=== PATIENT | male | born 1970 | race African-American/Black ===

== ENCOUNTER 2018-02-03 15:35 | Emergency (ER) | payer OTHER ==
[~2018-02-03] VITALS: Ht 170.2 cm; Wt 85.9 kg
[~2018-02-03 15:35] MED LIST: CIPRO500 MG PO; FLEXERIL10 MG PO; KEFLEX500 MG PO; MOBIC7.5 MG PO; NAPROSYN500 MG PO; NORCO 5/3251 TABLET PO; PERCOCET 5/31 TABLET PO; PYRIDIUM200 MG PO; ULTRAM50 MG PO; VALIUM5 MG PO; ZOFRAN ODT4 MG PO
[2018-02-03] MEDS ORDERED: VALIUM5 MG PO (16:52)
[2018-02-03] MEDS ORDERED: TORADOL10 MG PO (16:52)
[2018-02-03] MEDS ORDERED: LIDODERM 5% P1 PATCH TD (16:52)
[2018-02-03 18:00] VITALS: BP 134/87
== END 2018-02-03 18:00 | disposition home or self-care (01) ==
LOC: EME 15:35
DX: M54.31 Sciatica, right side (principal)
CPT/HCPCS: 99281; 99284; J1100; J1885